=== PATIENT | female | born 1965 | race Caucasian/White ===

== ENCOUNTER → 2017-05-28 16:30 | Outpatient (CLI) | payer BC, SELFPAY ==
--- NOTE | 2017-05-28 16:26 | HPBI_ITS ---
MAMMOGRAPHY - BILATERAL SCREENING REASON FOR EXAM: Female, 51 years old. Routine annual screening examination. PERTINENT HISTORY: Aunt with breast cancer. TECHNIQUE: Digital bilateral breast adwoa (3D mammographic acquisition) in the CC and MLO projections. 2-D mediolateral oblique (MLO) and craniocaudad (CC) views of both breasts were obtained. CAD: Full Field Digital Mammography with Computer Added Detection was performed. COMPARISON: Comparison is made with prior study dated January 11, 2016 and December 14, 2014. FINDINGS: Breast Composition: There are scattered areas of fibroglandular density. There are no dominant masses or suspicious calcifications. No other significant abnormalities are identified. There has been no significant change since the prior study. HPBI/SCREENING MAMM (CAD), BILAT IMPRESSION: Stable bilateral screening mammogram. Yearly follow-up mammogram recommended. (A) ASSESSMENT CATEGORY: BIRADS Category 1: Negative. A letter regarding these results will be sent to the patient by the facility within 30 days. Approximately 10% of breast cancers are not detected by mammography. A normal mammogram should not delay biopsy of a clinically suspicious abnormality. [id number] Electronically Signed: Santosh Tan MD at 8:18 EST Tel [phone], Service support ,
== END ==
PROVIDERS: Family Provider Family Medicine; PCP Family Medicine; Visit Provider Family Medicine
DX: Z12.31 Encounter for screening mammogram for malignant neoplasm of breast (principal)
CPT/HCPCS: 77063; 77067

== ENCOUNTER → 2017-10-23 15:24 | Outpatient (CLI) | payer BC, SELFPAY ==
--- NOTE | 2017-10-23 15:34 | RAD_ITS ---
STUDY: X-RAY - UNILATERAL RIBS ( LEFT ) WITH CHEST REASON FOR EXAM: Female, 52 years old. Left lower anterior rib deformity, no known injury TECHNIQUE - RIBS: 4 view(s) of the ribs. TECHNIQUE - CHEST: Single PA view of the chest. COMPARISON: None. FINDINGS - RIBS: Normal visualized ribs without a demonstrated fracture. FINDINGS - CHEST: The lungs are clear and expanded. There is no demonstrated pleural abnormality. Normal size heart. Normal mediastinum and neena. Normal visualized pulmonary arteries. Normal visualized aortic arch and descending thoracic aorta. Normal visualized thoracic spine. Normal visualized ribs, clavicles, and shoulders. There is no demonstrated abnormality of the visualized soft tissue structures of the upper abdomen. RAD/Ribs Uni Min 3V w/PA Chest IMPRESSION: RIBS: Normal x-ray examination of the ribs. CHEST: Normal x-ray examination of the chest. Electronically Signed: Vinod Olivo MD at 23:53 EDT , Service support ,
[2017-10-24 08:40] LABS: Vitamin D,25 Hydroxy 39.1 ng/mL (29.95-100.01)
== END ==
PROVIDERS: Family Provider Family Medicine; PCP Family Medicine; Visit Provider Family Medicine
DX: M95.4 Acquired deformity of chest and rib (principal); E55.9 Vitamin D deficiency, unspecified
CPT/HCPCS: 36415; 71101; 82306

== ENCOUNTER → 2018-04-09 18:23 | Outpatient (CLI) | payer BC, SELFPAY ==
[2018-04-24 10:40] LABS: HPV Reflexed? NOT INDICATED
== END ==
PROVIDERS: Family Provider Family Medicine; PCP Family Medicine; Referring Provider Nurse Practitioner Adult Health; Visit Provider Nurse Practitioner Adult Health
DX: Z01.419 Encounter for gynecological examination (general) (routine) without abnormal findings (principal)
CPT/HCPCS: 88175; G0145

== ENCOUNTER → 2018-11-20 | Outpatient (CLI) | payer BC, SELFPAY ==
--- NOTE | 2018-11-20 15:37 | BI_ITS ---
MAMMOGRAPHY - BILATERAL SCREENING REASON FOR EXAM: Female, 53 years old. Routine annual screening examination. PERTINENT HISTORY: Aunt with breast cancer. TECHNIQUE: Digital bilateral breast miranda (3D mammographic acquisition) in the CC and MLO projections. 2-D mediolateral oblique (MLO) and craniocaudad (CC) views of both breasts were obtained. CAD: Full Field Digital Mammography with Computer Added Detection was performed. COMPARISON: Comparison is made with prior study dated May 28, 2017 and January 11, 2016. FINDINGS: Breast Composition: The breasts are almost entirely fatty. There are no dominant masses or suspicious calcifications. Stable small benign-appearing bilateral axillary lymph nodes. No other significant abnormalities are identified. There has been no significant change since the prior study. BI/SCREEN MAMM (CAD) W/MIRANDA BILAT IMPRESSION: Stable bilateral screening mammogram. Yearly follow-up mammogram recommended. (A) ASSESSMENT CATEGORY: BIRADS Category 2: Benign. A letter regarding these results will be sent to the patient by the facility within 30 days. Approximately 10% of breast cancers are not detected by mammography. A normal mammogram should not delay biopsy of a clinically suspicious abnormality. [id number] Electronically Signed: Santosh Tan, at 8:21 EDT , Service support ,
== END | disposition home or self-care (01) ==
LOC: OPBI 15:35
PROVIDERS: Family Provider Family Medicine; PCP Family Medicine; Referring Provider Family Medicine; Visit Provider Family Medicine
DX: Z00.00 Encounter for general adult medical examination without abnormal findings (principal); Z12.31 Encounter for screening mammogram for malignant neoplasm of breast
CPT/HCPCS: 77063; 77067

== ENCOUNTER → 2019-06-04 10:09 | Outpatient (CLI) | payer BC, SELFPAY ==
--- NOTE | 2019-06-04 10:13 | RAD_ITS ---
STUDY: X-RAY - RIGHT HAND, ATTENTION RIGHT THUMB. REASON FOR EXAM: Female, 53 years old. Shut the tip of thumb in car door 2 days ago, throbbing, pain and bruising entire thumb TECHNIQUE: 3 view(s) of the finger were obtained. COMPARISON: None. FINDINGS: Normal metacarpal head. Normal metacarpophalangeal joint. Normal proximal phalanx. Nondisplaced fracture of the tuft of the distal phalanx of the thumb. Normal distal interphalangeal joint. RAD/Finger(s) Min 2 Views IMPRESSION: Nondisplaced transverse fracture at the tuft of the distal phalanx of the thumb. Electronically Signed: Santosh Tan, at 10:33 EDT , Service support ,
[2019-06-04 12:26] LABS: Absolute Lymphocyte Count 1.79 X10^3/uL (0.83-4.51); Absolute Neutrophil Count 3.2 X10^3/uL (2.0-7.7); Basophil# 0.03 X10^3/uL; Basophil% 0.5 % (0-1); Eosinophil# 0.07 X10^3/uL; Eosinophils% 1.2 % (0-5); Hematocrit 46.2 % (37-47); Lymphocyte # 1.79 X10^3/ul (4.0); Mean Corp Hgb Conc 32.5 g/dL (32-36); Mean Corpuscular Hgb 29.4 pg (27.0-32.0); Mean Corpuscular Volume 90.6 fL (81-99); Mean Platelet Vol. 10.6 fl (6.2-12.0); Monocyte# 0.85 X10^3/uL; Monocyte% 14.2 % (0-10); NRBC Flagged by Analyzer 0 % (0-5); Neutrophil # 3.21 X10^3/uL (2.7-7.7); Neutrophil % 53.8 % (47-70); Platelet Count 279 K/mm3 (150-450); RBC Distribution Width CV 11.9 % (11.6-14.6); RBC Distribution Width SD 39.6 fl (35.1-43.9)
[2019-06-04 12:55] LABS: ALB/GLOB Ratio 0.9 RATIO (0.9-2.4); AST(SGOT) 15 U/L (15-37); Alanine Aminotransfer ALT/SGPT 26 U/L (13-56); Albumin, Serum 3.8 g/dL (3.2-5.0); Alkaline Phosphatase 72 U/L (45-117); Amylase 86 U/L (25-115); Anion Gap 5 (5-15); BUN 10 mg/dL (7-18); BUN/Creat Ratio 12.5 RATIO (10-20); Calcium,Total 9.6 mg/dL (8.5-10.1); Chloride 107 mmol/L (98-107); EST Glomerular Filtration Rate 79 mL/min (>60); Est Glom Filt Rate - Afr Amer 96 mL/min (>60); Globulin 4.1 g/dL (2.2-4.2); Glucose 94 mg/dL (74-106); Lipase 261 U/L (73-393); Magnesium 2.1 mg/dL (1.6-2.6); Potassium 3.8 mmol/L (3.5-5.1); Protein, Total 7.9 g/dL (6.4-8.2); Sodium Level 139 mmol/L (136-145)
== END ==
PROVIDERS: PCP Family Medicine; Referring Provider Nurse Practitioner Adult Health; Visit Provider Nurse Practitioner Adult Health
DX: S69.91XS Unspecified injury of right wrist, hand and finger(s), sequela (principal); X58.XXXS Exposure to other specified factors, sequela; R16.0 Hepatomegaly, not elsewhere classified; R53.83 Other fatigue
CPT/HCPCS: 36415; 73140; 80053; 82150; 83690; 83735; 84443; 85025

== ENCOUNTER → 2019-06-10 | Outpatient (CLI) | payer BC, SELFPAY ==
--- NOTE | 2019-06-10 13:17 | CT_ITS ---
STUDY: CT ABDOMEN WITH AND WITHOUT CONTRAST REASON FOR EXAM: Female, 53 years old. LIVER MASS on on ct chest. no outside images. DONE THREE PHASE LIVER RADIATION DOSAGE (If Supplied By Facility): CTDIvol = ( 13.68 ) mGy, DLP = ( 1540.24 ) mGycm TECHNIQUE: Transaxial images were obtained pre and post I.V. administration of Oral and amp; IV Readi-CAT and amp; 100mL Isovue-300, and with oral contrast. Sagittal and coronal images were reconstructed. Individualized dose optimization techniques were used for this CT. COMPARISON: None. FINDINGS: The visualized lung bases are unremarkable. The visualized portions of the heart are within normal limits. There is a 6 cm lobulated mass in the medial aspect of the posterior segment of the right lobe of the liver. There is low density on noncontrast images. On arterial phase images shows mild prominent circumferential vascularity. On venous images that shows diffuse increasing enhancement. On delayed images it becomes nearly isodense. Findings are therefore most consistent with a large hemangioma. The gallbladder is contracted. Normal spleen. Normal pancreas. Normal bilateral adrenal glands. Normal right kidney. Normal left kidney. Normal visualized stomach. Normal small intestine. Normal colon. The appendix is visualized and appears normal. Normal abdominal aorta. Normal inferior vena cava. Normal retroperitoneum. Normal abdominal wall. Normal osseous structures. CT/Abdomen W/WO IV Contrast IMPRESSION: 6 cm mass in the posterior segment of the right hepatic lobe shows enhancement characteristics consistent with hemangioma. Electronically Signed: Pedro Ocampo MD at 15:58 EDT , Service support ,
== END | disposition home or self-care (01) ==
LOC: CT 13:08
PROVIDERS: PCP Family Medicine; Referring Provider Nurse Practitioner Adult Health; Visit Provider Nurse Practitioner Adult Health
DX: R16.0 Hepatomegaly, not elsewhere classified (principal)
CPT/HCPCS: 74170; Q9967; A4216

== ENCOUNTER → 2019-06-13 11:26 | Outpatient (CLI) | payer BC, SELFPAY ==
--- NOTE | 2019-06-13 11:32 | STE_ITS ---
Reason For Study: Chest Pain; Syncope Stress Results Protocol: Fercho Protocol Maximum Predicted HR: 166 bpm Target HR: 141 bpm % Maximum Predicted HR: 92 % DurationHeart Rate Stage (mm:ss) (bpm) BP Comment Baseline 76 122/84No Chest Pain Fercho Protocol Stage I 3:00 114 130/74No Chest Pain Fercho Protocol Stage II 3:00 133 132/72No Chest Pain Fercho Protocol Stage III 3:00 153 146/62No Chest Pain; Mild Dyspnea Recovery 99 116/72No Chest Pain Stress Duration: 9:00 mm:ss Maximum Stress HR: 153 bpm METS: 10 Baseline Echocardiogram Findings The estimated ejection fraction is 65 %. Stress Echo Wall motion Data Resting WM Intermediate WM Stress WM Resting Wall Motion Wall Motion Stress No regional wall motion No regional wall motion abnormalities noted. abnormalities noted. EKG Data The baseline ECG displays normal sinus rhythm. The patient exercised according to the regular Fercho protocol for a total duration of 9:00. The maximum heart rate attained was 155 beats per minute. This was 93% of maximum predicted heart rate. The patient exercised into stage 4 of the Fercho protocol. No clinical angina was noted. No arrhythmias noted. At peak exercise, upsloping ST changes only were noted, which did not meet the criteria for ischemia. Interpretation Summary The estimated ejection fraction is 65 %. Normal, adequate, treadmill echocardiogram. Negative for ischemia by EKG and echocardiographic criteria. No anginal symptoms noted. No arrhythmias noted. Average exercise capacity for age. Appropriate blood pressure response to exercise. Final LVEF is 75%. Test terminated due to attainment target heart rate. Patient tolerated procedure well. No complications. Ordering Physician: Heather Xiong Referring Physician: Haresh Bourgeois Performed By: Renetta Tang RDCS
== END ==
PROVIDERS: PCP Family Medicine; Referring Provider Nurse Practitioner Adult Health; Visit Provider Nurse Practitioner Adult Health
DX: R16.0 Hepatomegaly, not elsewhere classified (principal); R07.89 Other chest pain
CPT/HCPCS: 93017; 93350